=== PATIENT | female | born 1965 | race Caucasian/White ===

== ENCOUNTER → 2018-11-15 | Outpatient (CLI) | payer BC ==
--- NOTE | 2018-11-16 08:14 | REP ---
PELVIS, SINGLE VIEW: Single AP view of the pelvis is performed. There is no acute fracture or dislocation. There is a total left hip prosthesis which appears to be in good position. There are degenerative changes of the lower lumbar spine. Large spurs are seen on the left at L4 and L5. There is partial sacralization of L5 on the left. IMPRESSION: Total hip prosthesis on the left. Degenerative changes of the lower lumbar spine with partial sacralization of L5 on the left. Electronically Signed by Leif Nolen MD 11/17/2018 10:12 A
--- NOTE | 2018-11-16 08:23 | REP ---
SACRUM AND COCCYX: Three AP and lateral views of the sacrum and coccyx are performed and demonstrate no fracture, dislocation, or instrinsic bone disease. The sacroiliac joints appear essentially unremarkable without significant arthritic change. There is a metallic prosthesis of the left hip. There are moderate degenerative changes of the lower lumbar spine with moderate sized spurs on the left at L4 and L5. There is partial sacralization of L5 on the left. IMPRESSION: Unremarkable appearance of sacrum and coccyx. Moderate degenerative changes of the lower lumbar spine with partial sacralization of L5 on the left. Electronically Signed by Leif Nolen MD 11/17/2018 10:45 A
== END ==
LOC: M SMT 15:49
PROVIDERS: ATTEND Physician Assistant
DX: R10.2 Pelvic and perineal pain (principal); M51.36 Other intervertebral disc degeneration, lumbar region; Z96.642 Presence of left artificial hip joint

== ENCOUNTER → 2019-04-28 | Outpatient (CLI) | payer BC | LOC: M SLEEP HO 12:04 | PROVIDERS: ATTEND Physician Assistant | DX: G47.39 Other sleep apnea (principal) ==

== ENCOUNTER → 2019-05-07 | Outpatient (CLI) | payer BC ==
--- NOTE | 2019-05-08 08:55 | REP ---
LEFT HIP, AP AND LATERAL: Left hip was ordered. The entire left femur is performed. There is a total left hip prosthesis. There is a long metallic plate with multiple metallic screws in the mid to distal femur with cerclage wiring in the proximal femur around the metallic plate and stem of the prosthesis. Old, healed fracture is noted over the distal femur. No acute fracture or dislocation is seen. Old screw holes are seen in the mid femoral shaft. No other osseous abnormality is seen. Two metallic screws are seen in the patella. Electronically Signed by Leif Nolen MD 05/08/2019 06:24 P
== END ==
LOC: M WUC 10:40
PROVIDERS: ATTEND Physician Assistant
DX: M25.552 Pain in left hip (principal); Z96.642 Presence of left artificial hip joint

== ENCOUNTER → 2019-06-22 | Outpatient (REF) | payer BC | LOC: M LAB REF 18:14 | PROVIDERS: ATTEND Dermatology | DX: L57.0 Actinic keratosis (principal) ==

== ENCOUNTER 2019-07-29 17:19 | Inpatient (IN) | payer BC ==
[~2019-07-29] VITALS: Ht 162.6 cm; Wt 82.3 kg
[2019-07-29] MEDS ORDERED: BUPR150T3 PO (17:36)
[2019-07-29] MEDS ORDERED: ESCI10TA2 PO (17:36)
[2019-07-29] MEDS ORDERED: MELO15TA28 PO (17:36)
[2019-07-29] MEDS ORDERED: OMEP-221 PO (17:36)
[2019-07-29] MEDS ORDERED: AMPH1CAP15 PO (17:36)
[2019-07-29] MEDS ORDERED: VALA500T5 PO (17:36)
[2019-07-29] MEDS ORDERED: ONDANSETRON 4MG/2ML VIAL IV ONE (17:45)
[2019-07-29] MEDS ORDERED: MORPHINE 2 MG/ML 1ML VIAL (J2270) IV PRN (17:45)
[2019-07-29] MEDS ORDERED: NS 1,000 ML IV ONE (17:45)
[2019-07-29 17:51] LABS: BASO % 0.2 % (0.0-1.0); EOS # 0.1 10^3/uL (0.0-0.5); EOS % 2.3 % (0.0-3.0); HEMATOCRIT 37.9 % (36.0-47.0); HEMOGLOBIN 12.9 g/dl (12.0-15.5); LYMPH # 1.8 10^3/uL (1.5-5.0); LYMPH % 31.7 % (24.0-44.0); MEAN CORPUSCULAR HEMOGLOBIN 28.8 pg (27.0-33.0); MEAN CORPUSCULAR VOLUME 84.6 fl (80.0-96.0); MONO # 0.4 10^3/uL (0.0-0.8); MONO % 7.4 % (0.0-5.0); NEUTROPHILS # 3.3 10^3/uL (1.5-8.5); PLATELET COUNT, AUTOMATED 306 10^3/uL (150-450); RED BLOOD COUNT 4.48 10^6/uL (4.00-5.40); WHITE BLOOD COUNT 5.7 10^3/uL (4.0-10.0)
[2019-07-29] MEDS ORDERED: ISOVUE-370 76% 100ML VIAL As Ordered ONE (17:51)
[2019-07-29 18:00] LABS: INR 0.98; PROTHROMBIN TIME 12.7 SECONDS (11.8-14.0)
[2019-07-29 18:01] LABS: PARTIAL THROMBOPLASTIN TIME 26.2 SECONDS (25.0-38.4)
[2019-07-29 18:20] LABS: BILIRUBIN,DIRECT 0.2 MG/DL (0.0-0.2); BILIRUBIN,TOTAL 0.5 MG/DL (0.2-1.0); TOTAL PROTEIN 7.1 GM/DL (6.4-8.2)
--- NOTE | 2019-07-29 18:24 | REPVR ---
PROCEDURE INFORMATION: Exam: CT Head Without Contrast Exam date and time: 07/29/2019 6:06 PM Age: 53 years old Clinical indication: Injury or trauma; Injury history: Bucked from horse; Initial encounter; Blunt trauma (contusions or hematomas) TECHNIQUE: Imaging protocol: Computed tomography of the head without contrast. Radiation optimization: All CT scans at this facility use at least one of these dose optimization techniques: automated exposure control; mA and/or kV adjustment per patient size (includes targeted exams where dose is matched to clinical indication); or iterative reconstruction. COMPARISON: No relevant prior studies available. FINDINGS: Brain: There is no acute intracranial hemorrhage, cerebral edema, or midline shift. There is an incidental 3.6 x 1.9 cm arachnoid cyst in the anterior aspect of the right middle cranial fossa. Ventricles: No hydrocephalus. Bones/joints: No acute fracture. Sinuses: No acute sinusitis. Mastoid air cells: Visualized mastoid air cells are well aerated. Soft tissues: Unremarkable. IMPRESSION: No acute intracranial abnormality. Electronically signed by: Abdon Vazquez On 07/29/2019 18:23:33 PM
--- NOTE | 2019-07-29 18:28 | REPVR ---
PROCEDURE INFORMATION: Exam: CT Cervical Spine Without Contrast Exam date and time: 07/29/2019 6:06 PM Age: 53 years old Clinical indication: Injury or trauma; Injury history: Bucked from horse; Initial encounter; Blunt trauma TECHNIQUE: Imaging protocol: Computed tomography images of the cervical spine without contrast. Radiation optimization: All CT scans at this facility use at least one of these dose optimization techniques: automated exposure control; mA and/or kV adjustment per patient size (includes targeted exams where dose is matched to clinical indication); or iterative reconstruction. COMPARISON: No relevant prior studies available. FINDINGS: Vertebrae: The patient is status post C5-C6 fusion with anterior plate and screw fixation. The surgical hardware is in place and intact. There is straightening of the normal cervical lordosis. No acute fracture is identified. Discs/Spinal canal/Neural foramina: Moderate degenerative changes of the cervical spine are present. There is no severe spinal canal stenosis. Severe right and moderate left neural foraminal narrowing is present at C3-C4 and C4-C5 due to uncinate spurring and facet arthropathy. Soft tissues: Unremarkable. Lungs: Lung apices are normal. IMPRESSION: 1. No acute abnormality. 2. Chronic findings as discussed above. Electronically signed by: Abdon Vazquez On 07/29/2019 18:28:05 PM
--- NOTE | 2019-07-29 18:37 | REPVR ---
PROCEDURE INFORMATION: Exam: CT Chest With Contrast Exam date and time: 07/29/2019 6:06 PM Age: 53 years old Clinical indication: Injury or trauma; Injury history: Bucked from horse; Initial encounter; Blunt trauma (contusions or hematomas) TECHNIQUE: Imaging protocol: Computed tomography of the chest with intravenous contrast. Radiation optimization: All CT scans at this facility use at least one of these dose optimization techniques: automated exposure control; mA and/or kV adjustment per patient size (includes targeted exams where dose is matched to clinical indication); or iterative reconstruction. Contrast material: ISOVUE 370; Contrast volume: 100 ml; Contrast route: IV; COMPARISON: No relevant prior studies available. FINDINGS: Lungs: Dependent atelectasis is present in the lower lobes. There is no focal consolidation. Pleural space: Unremarkable. No pneumothorax. No pleural effusion. Heart: Unremarkable. No cardiomegaly. No pericardial effusion. Aorta: Unremarkable. No aortic aneurysm. Lymph nodes: Unremarkable. No enlarged lymph nodes. Bones/joints: Acute buckle fractures are seen involving the anterior right 5th through 7th ribs. A nondepressed posterior right 11th rib fracture is also noted. There are acute fractures involving the right transverse processes of L1, L2, and L3. Please see the dedicated abdomen CT report for further details. Soft tissues: Unremarkable. IMPRESSION: 1. Acute buckle fractures are seen involving the anterior right 5th through 7th ribs. A nondepressed posterior right 11th rib fracture is also noted. 2. There are acute fractures involving the right transverse processes of L1, L2, and L3. Please see the dedicated abdomen CT report for further details. Electronically signed by: Abdon Vazquez On 07/29/2019 18:37:00 PM
--- NOTE | 2019-07-29 18:46 | REPVR ---
PROCEDURE INFORMATION: Exam: CT Abdomen And Pelvis With Contrast Exam date and time: 07/29/2019 6:06 PM Age: 53 years old Clinical indication: Injury or trauma; Injury history: Bucked from horse; Initial encounter; Blunt; Generalized TECHNIQUE: Imaging protocol: Computed tomography of the abdomen and pelvis with intravenous contrast. Radiation optimization: All CT scans at this facility use at least one of these dose optimization techniques: automated exposure control; mA and/or kV adjustment per patient size (includes targeted exams where dose is matched to clinical indication); or iterative reconstruction. Contrast material: ISOVUE 370; Contrast volume: 100 ml; Contrast route: IV; COMPARISON: CR PELVIS AP 11/15/2018 4:00 PM FINDINGS: Liver: Normal. No mass. Gallbladder and bile ducts: Normal. No calcified stones. No ductal dilation. Pancreas: Normal. No ductal dilation. Spleen: Normal. No splenomegaly. Adrenals: Normal. No mass. Kidneys and ureters: Normal. No hydronephrosis. Stomach and bowel: Unremarkable. No obstruction. No mucosal thickening. Appendix: No evidence of appendicitis. Intraperitoneal space: Unremarkable. No free air. No significant fluid collection. Vasculature: Unremarkable. No abdominal aortic aneurysm. Lymph nodes: Unremarkable. No enlarged lymph nodes. Bladder: Unremarkable as visualized. Reproductive: Unremarkable as visualized. Bones/joints: There are only 11 rib-bearing thoracic vertebra. Therefore, there is a nondisplaced posterior right 10th rib fracture. Additionally, the 1st [id number] vertebra will be considered the T12 level since there is no transitional vertebra at the lumbosacral junction. Therefore, acute right transverse process fractures are noted at T12, L1, L2, L3, and L4. Acute buckle fractures are seen involving the anterior right 5th through 7th ribs. Evaluation of the pelvis is limited due to spray artifact from a left hip arthroplasty. Soft tissues: Unremarkable. IMPRESSION: 1. Acute fractures involving the anterior right 5th through 7th ribs, the posterior right 10th rib, and the right transverse processes of T12 through L4. 2. No acute intra-abdominal abnormality Electronically signed by: Abdon Vazquez On 07/29/2019 18:46:24 PM
--- NOTE | 2019-07-29 18:55 | REP ---
Clinical: Trauma. Comparison: None. Findings: Mild cardiomegaly cannot be excluded. Increased pulmonary vasculature and interstitial markings may reflect underlying pulmonary edema as well as subtle right infrahilar atelectasis. No focal consolidation, effusion, or pneumothorax. Skeletal structures appear intact (right rib fractures identified on CT are not visible by portable chest x-ray). Impression: 1. Possible mild pulmonary vascular congestion/interstitial edema as well as minimal right infrahilar atelectasis. Electronically Signed by Mikey Adames MD 07/29/2019 06:47 P
[2019-07-29] MEDS ORDERED: VITAD1000T PO (19:18)
[2019-07-29] MEDS ORDERED: VITA500C24 PO (19:18)
[2019-07-29] MEDS ORDERED: OYST1TAB PO (19:18)
[2019-07-29] MEDS ORDERED: TAB-TAB PO (19:18)
--- NOTE | 2019-07-29 19:22 | ECGEPIP ---
[facility] - ED Test Date: 2019-07-29 Pat Name: VIOLETTE WILLINGHAM Department: Room: - Gender: Female Ambulatory Service Representative: : 1965 Requested By: Alis Lane Order Number: [id number] Reading MD: Alis Lane Measurements Intervals [place] Rate: 84 P: 62 [place]: 165 QRS: 73 QRSD: 103 T: 25 QT: 377 QTc: 446 Interpretive Statements SINUS RHYTHM NONSPECIFIC T-WAVE ABNORMALITY NONSPECIFIC ST T WAVE CHANGES DELAYED R WAVE PROGRESSION NO PRIOR ECG FOR COMPARISON Electronically Signed on 07-29-2019 19:22:[address]
[2019-07-29 20:00] VITALS: BP 119/67
--- NOTE | 2019-07-29 20:12 | REPVR ---
PROCEDURE INFORMATION: Exam: CT Thoracic Spine Without Contrast Exam date and time: 07/29/2019 7:54 PM Age: 53 years old Clinical indication: Injury or trauma; Injury history: Bucked from horse; Initial encounter; Blunt trauma (contusions or hematomas) TECHNIQUE: Imaging protocol: Computed tomography images of the thoracic spine without contrast. Radiation optimization: All CT scans at this facility use at least one of these dose optimization techniques: automated exposure control; mA and/or kV adjustment per patient size (includes targeted exams where dose is matched to clinical indication); or iterative reconstruction. COMPARISON: No relevant prior studies available. FINDINGS: Ribs: There is a fracture of the right 6 rib at the costovertebral junction. Vertebrae: No acute fracture. Normal alignment. T1-T2: No significant disc protrusion. No severe spinal canal stenosis. No significant neural foraminal narrowing. T2-T3: No significant disc protrusion. No severe spinal canal stenosis. No significant neural foraminal narrowing. T3-T4: No significant disc protrusion. No severe spinal canal stenosis. No significant neural foraminal narrowing. T4-T5: No significant disc protrusion. No severe spinal canal stenosis. No significant neural foraminal narrowing. T5-T6: No significant disc protrusion. No severe spinal canal stenosis. No significant neural foraminal narrowing. T6-T7: No significant disc protrusion. No severe spinal canal stenosis. No significant neural foraminal narrowing. T7-T8: No significant disc protrusion. No severe spinal canal stenosis. No significant neural foraminal narrowing. T8-T9: No significant disc protrusion. No severe spinal canal stenosis. No significant neural foraminal narrowing. T9-T10: No significant disc protrusion. No severe spinal canal stenosis. No significant neural foraminal narrowing. T10-T11: No significant disc protrusion. No severe spinal canal stenosis. No significant neural foraminal narrowing. T11-T12: No significant disc protrusion. No severe spinal canal stenosis. No significant neural foraminal narrowing. T12-L1: No significant disc protrusion. No severe spinal canal stenosis. No significant neural foraminal narrowing. IMPRESSION: 1. Fracture of the right 6th rib at the costovertebral junction. Electronically signed by: Teodora Anna On 07/29/2019 20:12:00 PM
--- NOTE | 2019-07-29 20:20 | REPVR ---
PROCEDURE INFORMATION: Exam: CT Lumbar Spine Without Contrast Exam date and time: 07/29/2019 7:54 PM Age: 53 years old Clinical indication: Injury or trauma; Injury history: Bucked from horse; Initial encounter; Blunt trauma (contusions or hematomas) TECHNIQUE: Imaging protocol: Computed tomography images of the lumbar spine without contrast. Radiation optimization: All CT scans at this facility use at least one of these dose optimization techniques: automated exposure control; mA and/or kV adjustment per patient size (includes targeted exams where dose is matched to clinical indication); or iterative reconstruction. COMPARISON: No relevant prior studies available. FINDINGS: Vertebrae: There is a fracture of the right transverse process of L1.. There is a fracture of the right transverse process of L2, L3 and L4. There is lumbarization of S1. L1-L2: No significant disc protrusion. No severe spinal canal stenosis. No significant neural foraminal narrowing. L2-L3: No disc herniation. No spinal canal stenosis. No neural foraminal narrowing. L3-L4: No significant disc protrusion. No severe spinal canal stenosis. No significant neural foraminal narrowing. L4-L5: No significant disc protrusion. No severe spinal canal stenosis. No significant neural foraminal narrowing. L5-S1: Circumferential annulus bulge. Narrowing of the L4-L5 intervertebral disc space with endplate sclerosis, marginal osteophytes and vacuum disc. No significant disc protrusion. No severe spinal canal stenosis. No significant neural foraminal narrowing. Soft tissues: Unremarkable. IMPRESSION: 1. Fractures of the right transverse process of L1, L2, L3, L4 and L5. 2. Lumbarization of S1 with moderately advanced degenerative changes at L5-S1. Electronically signed by: Teodora Anna On 07/29/2019 20:20:08 PM
[2019-07-29] MEDS ORDERED: NS 1,000 ML IV SCH (20:25)
[2019-07-29] MEDS ORDERED: NALOXONE INJ 0.4MG/1ML VIAL (J2310 PER 1MG) IV PRN (20:30)
[2019-07-29] MEDS ORDERED: diphenhydrAMINE 50MG/ML VIAL (J1200) IV PRN (20:30)
[2019-07-29] MEDS ORDERED: EPIDURAL/PCA KEYS XX PRN (20:30)
[2019-07-29] MEDS ORDERED: MORPHINE 1MG/ML IN 0.9% NACL 100ML IV BAG IV PRN (20:30)
[2019-07-29 21:30] VITALS: BP 119/67
[2019-07-29] MEDS: D5W/LR 1,000 ML IV SCH (22:02)
[2019-07-29] MEDS: KETOROLAC 30 MG/ML 1ML VIAL IV SCH (22:05)
[2019-07-30] VITALS: BP 113/65
[2019-07-30 04:00] VITALS: BP 98/55
[2019-07-30] MEDS: KETOROLAC 30 MG/ML 1ML VIAL IV SCH ×4 (04:02→21:44)
[2019-07-30 04:52] LABS: HEMATOCRIT 33.6 % (36.0-47.0); HEMOGLOBIN 11.5 g/dl (12.0-15.5); MEAN CORPUSCULAR HEMOGLOBIN 29.6 pg (27.0-33.0); MEAN CORPUSCULAR HGB CONC 34.2 g/dl (32.0-36.5); MEAN CORPUSCULAR VOLUME 86.4 fl (80.0-96.0); PLATELET COUNT, AUTOMATED 250 10^3/uL (150-450); RED BLOOD COUNT 3.89 10^6/uL (4.00-5.40); WHITE BLOOD COUNT 6.7 10^3/uL (4.0-10.0)
[2019-07-30 05:14] LABS: BLOOD UREA NITROGEN 17 MG/DL (7-18); CALCIUM LEVEL 8.1 MG/DL (8.5-10.1); CARBON DIOXIDE LEVEL 29 MEQ/L (21-32); CHLORIDE LEVEL 108 MEQ/L (98-107); CREATININE FOR GFR 0.85 MG/DL (0.55-1.30); GLOMERULAR FILTRATION RATE > 60.0 (>51); GLUCOSE, FASTING 112 MG/DL (70-100); POTASSIUM SERUM 3.8 MEQ/L (3.5-5.1); SODIUM LEVEL 141 MEQ/L (136-145)
[2019-07-30 05:15] LABS: ALBUMIN 3.2 GM/DL (3.2-5.2); ALT/SGPT 26 U/L (12-78); BILIRUBIN,TOTAL 0.6 MG/DL (0.2-1.0); TOTAL PROTEIN 5.9 GM/DL (6.4-8.2)
[2019-07-30] MEDS: ONDANSETRON 4MG/2ML VIAL IV PRN ×2 (06:25→13:04)
[2019-07-30] MEDS: D5W/LR 1,000 ML IV SCH (06:26)
[2019-07-30 07:49] VITALS: BP 85/56
[2019-07-30] MEDS: OYSTER SHELL CALCIUM 500 MG TAB PO SCH (08:33)
[2019-07-30] MEDS: ESCITALOPRAM OXALATE 10 MG TAB (LEXAPRO) PO SCH (08:33)
[2019-07-30] MEDS: valACYclovir HCL 500 MG TAB PO SCH (08:33)
[2019-07-30] MEDS: buPROPion **XL** TABLET 150MG (WELLBUTRIN XL) PO SCH (08:33)
[2019-07-30] MEDS: ASCORBIC ACID 500 MG TAB PO SCH (08:33)
[2019-07-30] MEDS: VITAMIN D 1,000 INTERNATIONAL UNITS TABLET PO SCH (08:33)
[2019-07-30] MEDS: PANTOPRAZOLE 40MG VIAL (C9113 PER 1) IV SCH (08:39)
[2019-07-30] MEDS ORDERED: PERCOCET 5MG/325MG TAB PO PRN (09:45)
[2019-07-30] MEDS ORDERED: PROMETHAZINE INJ 25 MG/ML VIAL (J2550) IV PRN (09:45)
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
--- NOTE | 2019-07-30 10:03 | IPN ---
DATE: 07/30/2019 The patient has been doing better overnight. 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 She has been afebrile. Her vital signs have been stable. Pulse oximetry has been doing well and she has not been significantly tachycardiac. Her movement is better in bed this morning. She is able sit up. On her physical exam, her chest wall is moving a little bit more symmetrically, but she is still splinting on the right-hand side. She has clear anterior as well as posterior lung sounds. Her abdomen is soft and nontender. She complains of her shoulder still being uncomfortable, but it is not as bad as it was yesterday. IMPRESSION AND PLAN: The patient has had some significant rib fractures, lower back fractures/transverse process fractures, and contusions, etc. At this point, seems to be making some improvement. We are still awaiting orthopedics recommendations concerning additional treatment for lower back/shoulder, but otherwise we are making some good progress at this time. 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
[2019-07-30 12:00] VITALS: BP 117/63
--- NOTE | 2019-07-30 13:34 | CR ---
DATE OF CONSULTATION: 07/30/2019 INDICATION: Multiple transverse process fractures. HISTORY OF PRESENT ILLNESS: Mily is a 53-year-old female who was riding her horse. She fell off and landed awkwardly. She was having trouble breathing, had pain in her chest and also right-sided flank pain. She was brought into [facility], where CT scans and a trauma panel revealed, I believe, a single rib fracture and then fractures of L1 through L5 spinous processed on the right side. She was admitted to the trauma service. Orthopedic consultation requested for management of the lumbar spine fractures. The patient is evaluated at the bedside. She is reporting moderate pain, mostly with walking. She denies numbness or tingling. Denies incontinence. Pain is improved with rest, made worse with walking. For the patient's full past medical history, past surgical history, medications, allergies, social history, and review of systems, please see the admitting history and physical (H and P), which was reviewed. Of note, the patient does have a prior proximal femur fracture years ago from a horse injury. She works as a [employer], I believe, at [employer] or in the [place] area. PHYSICAL EXAMINATION: Examination reveals a middle-aged female in no distress. She is alert and oriented times three. She has an appropriate mood and affect. She answers questions appropriately. She is pleasant. Pulmonary: Nonlabored breathing. Cardiovascular: 2+ PT pulse. Musculoskeletal: The patient has right-sided flank pain when sitting forward. Deferred palpation of the lumbar spine. She says with palpation, it hurts on the right side. She has 5/5 strength extensor hallucis longus (EHL), flexor hallucis longus (FHL), tibialis anterior (TA), gastrocnemius (and) soleus (GS) (muscles), hip flexors, and quadriceps. Sensation to light touch L3 through S1 intact. IMAGING: The patient has a CT scan of thoracic and lumbar spine. No thoracic spine fractures seen. Evaluation of the lumbar spine reveals significant degenerative disc disease at L4-L5. She has right-sided transverse process fractures from L1 through L5. Axial imaging was carefully reviewed, and these do not enter the pedicle. ASSESSMENT AND PLAN: Mily has L1 through L5 right-sided spinous processes fractures on the right side from a horse injury. There is no role for surgery here. A bracing can be done for comfort. I offered a corset for comfort. She has declined as of now. In terms of the muscle spasms, I would recommend a trial of tizanidine, also known as Zanaflex. Could do either the 2 or 4 mg dose every 8 hours as needed for spasm. This is the least likely to cause sedation. This would likely help her return to work the soonest. Anti-inflammatory medications, ibuprofen 600 mg every 8 hours as needed for pain or Aleve twice a day. The patient was encouraged to take vitamin D. She already does. I have offered her to followup at the [facility] for repeat imaging. However, these are stable injuries. It is also reasonable for her to followup on an as-needed basis, and that is what she is choosing. I recommend that she hold off on returning to work until 08/08/2019 at the earliest, but it could take an additional 1-2 weeks. All her questions were answered. She agrees to the plan. Discharge per general surgery. No additional imaging required.
[2019-07-30 16:13] VITALS: BP 95/59
[2019-07-30 20:00] VITALS: BP 99/54
[2019-07-31] VITALS: BP 100/61
[2019-07-31] MEDS: KETOROLAC 30 MG/ML 1ML VIAL IV SCH ×2 (03:56→08:25)
[2019-07-31 04:00] VITALS: BP 97/57
[2019-07-31 04:23] LABS: HEMOGLOBIN 11.2 g/dl (12.0-15.5); MEAN CORPUSCULAR HEMOGLOBIN 29.5 pg (27.0-33.0); MEAN CORPUSCULAR HGB CONC 32.9 g/dl (32.0-36.5); MEAN CORPUSCULAR VOLUME 89.5 fl (80.0-96.0); PLATELET COUNT, AUTOMATED 202 10^3/uL (150-450); WHITE BLOOD COUNT 5.5 10^3/uL (4.0-10.0)
[2019-07-31 04:37] LABS: BLOOD UREA NITROGEN 21 MG/DL (7-18); CREATININE FOR GFR 0.96 MG/DL (0.55-1.30); GLUCOSE, FASTING 92 MG/DL (70-100)
[2019-07-31 04:38] LABS: ALBUMIN 3.1 GM/DL (3.2-5.2); ALT/SGPT 24 U/L (12-78); BILIRUBIN,TOTAL 0.4 MG/DL (0.2-1.0); CALCIUM LEVEL 8.2 MG/DL (8.5-10.1); CARBON DIOXIDE LEVEL 31 MEQ/L (21-32); CHLORIDE LEVEL 109 MEQ/L (98-107); GLOMERULAR FILTRATION RATE > 60.0 (>51); POTASSIUM SERUM 4.2 MEQ/L (3.5-5.1); SODIUM LEVEL 142 MEQ/L (136-145); TOTAL PROTEIN 5.8 GM/DL (6.4-8.2)
[2019-07-31 08:03] VITALS: BP 130/67
[2019-07-31] MEDS ORDERED: PERCOCET PO (08:20)
[2019-07-31] MEDS ORDERED: NAPR-837 PO (08:20)
[2019-07-31] MEDS: PANTOPRAZOLE 40MG VIAL (C9113 PER 1) IV SCH (08:25)
[2019-07-31] MEDS: valACYclovir HCL 500 MG TAB PO SCH (08:26)
[2019-07-31] MEDS: buPROPion **XL** TABLET 150MG (WELLBUTRIN XL) PO SCH (08:26)
[2019-07-31] MEDS: VITAMIN D 1,000 INTERNATIONAL UNITS TABLET PO SCH (08:26)
[2019-07-31] MEDS: ASCORBIC ACID 500 MG TAB PO SCH (08:26)
[2019-07-31] MEDS: OYSTER SHELL CALCIUM 500 MG TAB PO SCH (08:26)
[2019-07-31] MEDS: ESCITALOPRAM OXALATE 10 MG TAB (LEXAPRO) PO SCH (08:26)
--- NOTE | 2019-07-31 13:17 | DSES ---
DATE OF ADMISSION: 07/29/2019 DATE OF DISCHARGE: 07/31/2019 PRINCIPAL DIAGNOSIS: Rib fractures, transverse process fractures of the spine (lumbar) from a fall. HISTORY OF PRESENT ILLNESS: The patient is a 53-year-old female who presented with a fall off a horse, essentially fell onto her right side. Extensive workup in the emergency room revealed rib fractures on the right-hand side as well as transverse process fractures of the lumbar spine. The patient also had a contusion of the abdominal wall clinically and right shoulder pain. HOSPITAL COURSE SUMMARY: The patient was admitted with the above findings. She was made comfortable. Eventually, she was moving over the first 24 hours. On the second hospital day, she was able to get up and move around well enough with pain control and with a walker. She was discharged home with plans to follow up with orthopedics in 2 weeks and myself in 2 weeks as well. She was encouraged to have slow progression to normal activity, but no heavy lifting or strenuous activity. She was encouraged to use a walker as needed. Medications at the time of discharge include vitamin C, buproprion, hydrochlorothiazide, calcium, vitamin D, Adderall, Lexapro, multivitamin, omeprazole, valcyclovir, and we her out from meloxicam to Naprosyn for the next 3-5 days and also ordered Percocet 5 mg tabs one to two every 4 hours as needed pain.
== END 2019-07-31 11:40 | disposition home or self-care (01) | DRG 135 ==
LOC: M ED 17:19 → M ED INP 20:25 → ENRESERV 20:52 → M PCU 21:31
PROVIDERS: ADMIT Surgery; ATTEND Surgery
DX: S22.41XA Multiple fractures of ribs, right side, initial encounter for closed fracture (principal); S32.019A Unspecified fracture of first lumbar vertebra, initial encounter for closed fracture; S32.029A Unspecified fracture of second lumbar vertebra, initial encounter for closed fracture; S32.039A Unspecified fracture of third lumbar vertebra, initial encounter for closed fracture; S30.1XXA Contusion of abdominal wall, initial encounter; S32.049A Unspecified fracture of fourth lumbar vertebra, initial encounter for closed fracture; W17.89XA Other fall from one level to another, initial encounter; Y92.9 Unspecified place or not applicable; Z79.899 Other long term (current) drug therapy; F41.9 Anxiety disorder, unspecified; F32.9 Major depressive disorder, single episode, unspecified; Z96.642 Presence of left artificial hip joint

== ENCOUNTER → 2020-05-24 | Outpatient (REF) | payer BC ==
[~2020-05-24] MED LIST: AMPH1CAP15 PO; BUPR150T12 PO; D31000TA2 PO; ESCI10TA16 PO; MELO15TA28 PO; NAPR-837 PO; OMEP-221 PO; OYST1TAB PO; PERCOCET PO; TAB-TAB2 PO; VALA500T5 PO; VITA500C24 PO
== END ==
LOC: M LAB REF 16:14
PROVIDERS: ATTEND Physician Assistant Medical
DX: M79.10 Myalgia, unspecified site (principal)

== ENCOUNTER → 2020-05-25 | Outpatient (CLI) | payer BC ==
--- NOTE | 2020-06-04 16:42 | REPMRS ---
Patient History The patient states she has not had a clinical breast exam in over a year. Patient is postmenopausal and had first child at age 31. Family history of breast cancer at age 50 or over in maternal aunt. Digital Woman Screen Mammo: May 25, 2020 - Exam #: [id number] Bilateral CC and MLO view(s) were taken. Technologist: Audra Gómez, Technologist Prior study comparison: January 08, 2016, bilateral digital mammo screening bilat, performed at [facility]. FINDINGS: There are scattered fibroglandular densities. The Volpara volumetric breast density category is:B. Multiple large benign dystrophic calcifications are again seen superiorly in the right breast unchanged. Breast parenchyma remains otherwise predominantly fat replaced. There has been no change in the appearance of the mammogram from the prior studies. There is a mild amount of scattered fibroglandular density which is fairly symmetric. There is no interval development of dominant mass, architectural distortion, or grouped microcalcification suggestive of malignancy. 3-D tomosynthesis shows no additional findings. Assessment: BI-RADS/ACR category 2 mammogram. Benign Findings. Recommendation Routine screening mammogram of both breasts in 1 year (for women over age 40). This patient's [facility] Lifetime Breast Cancer Risk is estimated at 13.8 %. This mammogram was interpreted with the aid of an FDA-approved computer-aided dectection system. Electronically Signed By: Bala Roberto MD 06/04/20 2523
== END ==
LOC: M WHC 16:35
PROVIDERS: ATTEND Physician Assistant Medical
DX: Z12.31 Encounter for screening mammogram for malignant neoplasm of breast (principal); Z80.3 Family history of malignant neoplasm of breast